=== PATIENT | female | born 1950 | race Caucasian/White ===

== ENCOUNTER 2021-03-26 10:58 | Emergency (ER) | payer MEDICARE, MEDICAID ==
[~2021-03-26] VITALS: Ht 172.7 cm; Wt 101.4 kg
[~2021-03-26 10:58] MED LIST: CALC-467; CETI-90 PO; CHOL10002 PO; DOCU-28 PO; GABA-530 PO; MULT-620 PO; RED30POW; TIZA4CAP PO; TRAM50TA2 PO; UBID10CA4; VITA-268 PO
[2021-03-26 11:24] VITALS: BP 154/100
== END 2021-03-26 11:53 | disposition home or self-care (01) ==
LOC: ER 10:58
DX: R04.0 Epistaxis (principal); G89.29 Other chronic pain; Z79.899 Other long term (current) drug therapy; Z88.8 Allergy status to other drugs, medicaments and biological substances
CPT/HCPCS: 99283

== ENCOUNTER 2021-04-07 07:03 | Emergency (ER) | payer MEDICARE, MEDICAID ==
[~2021-04-07] VITALS: Ht 172.7 cm; Wt 101.8 kg
--- NOTE | 2021-04-07 10:54 | NUR ---
MD MADE AWARE PAT NOSE BLEED STARTED AGAIN.
[2021-04-07] MEDS: tranexamic acid 100mg/ml inj. TP ONE (13:49)
[2021-04-07 13:53] LABS: BASOPHILS # (AUTO) 0.1 X10'3 (0-0.2); BASOPHILS % (AUTO) 0.7 % (0-1); EOSINOPHILS # (AUTO) 0.1 X10'3 (0-0.9); EOSINOPHILS % (AUTO) 0.8 % (0-6); HEMATOCRIT 40.2 % (35.0-45.0); HEMOGLOBIN 13.5 g/dl (12.0-16.0); LYMPHOCYTES # (AUTO) 1.5 X10'3 (1.1-4.8); LYMPHOCYTES % (AUTO) 18.3 % (21-51); MEAN CORPUSCULAR HEMOGLOBIN 28.6 PG (27.0-31.0); MEAN CORPUSCULAR HGB CONC 33.5 g/dL (33.0-36.5); MEAN CORPUSCULAR VOLUME 85.4 FL (78-98); MEAN PLATELET VOLUME 8.1 FL (7.4-10.4); MONOCYTES # (AUTO) 0.7 X10'3 (0-0.9); MONOCYTES % (AUTO) 8.5 % (2-12); NEUTROPHILS # (AUTO) 5.9 X10'3 (1.8-7.7); NEUTROPHILS % (AUTO) 71.7 % (42-75); PLATELET COUNT 370 X10'3 (140-440); RED BLOOD COUNT 4.71 X10'6 (4.20-5.60); RED CELL DISTRIBUTION WIDTH 13.9 % (11.5-14.5); WHITE BLOOD COUNT 8.2 X10'3 (4.5-11.0)
[2021-04-07 13:54] LABS: ALANINE AMINOTRANSFERASE 38 U/L (12-78); ALBUMIN 3.9 G/DL (3.4-5.0); ALBUMIN/GLOBULIN RATIO 1.1 (1.1-1.5); ALKALINE PHOSPHATASE 86 IU/L (46-116); ANION GAP 11 (8-16); ASPARTATE AMINO TRANSFERASE 20 U/L (10-37); BILIRUBIN,TOTAL 0.4 MG/DL (0.1-1.0); BLOOD UREA NITROGEN 19 MG/DL (7-18); BUN/CREATININE RATIO 22.6 (6.6-38.0); CALCIUM 8.7 MG/DL (8.5-10.1); CHLORIDE 106 MMOL/L (99-107); CREATININE 0.84 MG/DL (0.40-0.90); GLUCOSE 109 MG/DL (70-104); POTASSIUM 3.8 MMOL/L (3.5-5.1); SODIUM 144 MMOL/L (135-145); TOTAL PROTEIN 7.5 G/DL (6.4-8.2); eGFR 67 ML/MIN
[2021-04-07] MEDS: LIDOcaine Viscous 15ml cup MM ONE (14:17)
[2021-04-07] MEDS ORDERED: SULF1TAB49 PO (14:17)
[2021-04-07 15:12] VITALS: BP 148/92
== END 2021-04-07 15:15 | disposition home or self-care (01) ==
LOC: ER 07:06
DX: R04.0 Epistaxis (principal); G89.29 Other chronic pain; M54.9 Dorsalgia, unspecified; Z88.6 Allergy status to analgesic agent; Z88.5 Allergy status to narcotic agent; Z79.899 Other long term (current) drug therapy
CPT/HCPCS: 36415; 80053; 85025; 85610; 99283

== ENCOUNTER 2021-04-09 08:52 | Emergency (ER) | payer MEDICARE, MEDICAID ==
[~2021-04-09] VITALS: Ht 172.7 cm; Wt 100.0 kg
[~2021-04-09 08:52] MED LIST changes: +LIDOcaine 1% W/epiNEPHrine 1:100,000 20ml vial ONE; +SULF1TAB49 PO
[2021-04-09 09:12] VITALS: BP 153/76
[2021-04-09 09:44] LABS: BASOPHILS % (AUTO) 0.6 % (0-1); EOSINOPHILS # (AUTO) 0.1 X10'3 (0-0.9); EOSINOPHILS % (AUTO) 2.3 % (0-6); HEMATOCRIT 37.4 % (35.0-45.0); HEMOGLOBIN 12.3 g/dl (12.0-16.0); LYMPHOCYTES # (AUTO) 1.3 X10'3 (1.1-4.8); LYMPHOCYTES % (AUTO) 20.2 % (21-51); MEAN CORPUSCULAR HEMOGLOBIN 28.2 PG (27.0-31.0); MEAN CORPUSCULAR VOLUME 85.6 FL (78-98); MEAN PLATELET VOLUME 7.9 FL (7.4-10.4); MONOCYTES # (AUTO) 0.6 X10'3 (0-0.9); MONOCYTES % (AUTO) 9.5 % (2-12); NEUTROPHILS # (AUTO) 4.3 X10'3 (1.8-7.7); NEUTROPHILS % (AUTO) 67.4 % (42-75); PLATELET COUNT 372 X10'3 (140-440); RED BLOOD COUNT 4.37 X10'6 (4.20-5.60); RED CELL DISTRIBUTION WIDTH 13.4 % (11.5-14.5); WHITE BLOOD COUNT 6.4 X10'3 (4.5-11.0)
[2021-04-09 10:04] LABS: ALANINE AMINOTRANSFERASE 43 U/L (12-78); ALBUMIN/GLOBULIN RATIO 1.1 (1.1-1.5); ALKALINE PHOSPHATASE 89 IU/L (46-116); ANION GAP 11 (8-16); ASPARTATE AMINO TRANSFERASE 23 U/L (10-37); BILIRUBIN,TOTAL 0.3 MG/DL (0.1-1.0); BLOOD UREA NITROGEN 14 MG/DL (7-18); BUN/CREATININE RATIO 15.2 (6.6-38.0); CALCIUM 8.5 MG/DL (8.5-10.1); CHLORIDE 107 MMOL/L (99-107); CREATININE 0.92 MG/DL (0.40-0.90); GLUCOSE 104 MG/DL (70-104); SODIUM 144 MMOL/L (135-145); TOTAL CARBON DIOXIDE 25.6 MMOL/L (24-32); TOTAL PROTEIN 7.5 G/DL (6.4-8.2); eGFR 61 ML/MIN
== END 2021-04-09 12:15 | disposition home or self-care (01) ==
LOC: ER 08:52
DX: R04.0 Epistaxis (principal); G89.29 Other chronic pain; Z88.8 Allergy status to other drugs, medicaments and biological substances; Z79.899 Other long term (current) drug therapy
CPT/HCPCS: 30901; 36415; 80053; 85025; 85610; 86885; 86900; 86901; 99284

== ENCOUNTER 2022-07-02 12:12 | Emergency (ER) | payer MEDICARE, MEDICAID ==
[~2022-07-02] VITALS: Ht 172.7 cm; Wt 100.0 kg
[~2022-07-02 12:12] MED LIST changes: -LIDOcaine 1% W/epiNEPHrine 1:100,000 20ml vial ONE; -SULF1TAB49 PO
[2022-07-02 12:46] LABS: BASOPHILS % (AUTO) 0.1 % (0-1); EOSINOPHILS % (AUTO) 0 % (0-6); HEMATOCRIT 44.4 % (35.0-45.0); HEMOGLOBIN 14.7 g/dl (12.0-16.0); LYMPHOCYTES # (AUTO) 0.7 X10'3 (1.1-4.8); LYMPHOCYTES % (AUTO) 3.5 % (21-51); MEAN CORPUSCULAR HEMOGLOBIN 28.3 PG (27.0-31.0); MEAN CORPUSCULAR HGB CONC 33.2 g/dL (33.0-36.5); MEAN CORPUSCULAR VOLUME 85.1 FL (78-98); MEAN PLATELET VOLUME 8.3 FL (7.4-10.4); MONOCYTES # (AUTO) 1.1 X10'3 (0-0.9); MONOCYTES % (AUTO) 5.4 % (2-12); NEUTROPHILS # (AUTO) 17.8 X10'3 (1.8-7.7); PLATELET COUNT 359 X10'3 (140-440); RED BLOOD COUNT 5.21 X10'6 (4.20-5.60); RED CELL DISTRIBUTION WIDTH 13.5 % (11.5-14.5); WHITE BLOOD COUNT 19.6 X10'3 (4.5-11.0)
[2022-07-02 13:04] LABS: ALANINE AMINOTRANSFERASE 35 U/L (12-78); ALBUMIN 4.2 G/DL (3.4-5.0); ALKALINE PHOSPHATASE 84 IU/L (46-116); ANION GAP 11 (8-16); ASPARTATE AMINO TRANSFERASE 20 U/L (10-37); BILIRUBIN,TOTAL 0.4 MG/DL (0.1-1.0); BLOOD UREA NITROGEN 14 MG/DL (7-18); BUN/CREATININE RATIO 20.6 (6.6-38.0); CALCIUM 8.9 MG/DL (8.5-10.1); CHLORIDE 101 MMOL/L (99-107); CREATININE 0.68 MG/DL (0.40-0.90); GLUCOSE 147 MG/DL (70-104); LIPASE 191 U/L (73-393); POTASSIUM 3.5 MMOL/L (3.5-5.1); SODIUM 137 MMOL/L (135-145); TOTAL PROTEIN 8.3 G/DL (6.4-8.2); eGFR 86 ML/MIN
[2022-07-02] MEDS ORDERED: normal saline 1000ML IV soln IVB ONE (13:15)
[2022-07-02] MEDS ORDERED: ondansetron/PF 4mg/2ml inj IV ONE (13:15)
[2022-07-02] MEDS ORDERED: potassium CL 10mEq/100ml bag 100 ML IV ONE (13:15)
[2022-07-02] MEDS ORDERED: morphine 4 MG/ML inj SYRINge IV ONE (13:55)
[2022-07-02] MEDS ORDERED: PANT-47 PO (14:49)
[2022-07-02] MEDS ORDERED: METO-292 PO (14:49)
[2022-07-02 15:50] VITALS: BP 138/86
== END 2022-07-02 15:53 | disposition home or self-care (01) ==
LOC: ER 12:12
DX: K29.00 Acute gastritis without bleeding (principal); G89.29 Other chronic pain; M54.9 Dorsalgia, unspecified; Z88.6 Allergy status to analgesic agent; Z88.5 Allergy status to narcotic agent; Z79.899 Other long term (current) drug therapy
CPT/HCPCS: 36415; 71045; 74176; 80053; 83690; 85025; 93005; 96361; 96365; 96375; 99285; J2270; J2405; J3480; J7030

== ENCOUNTER 2025-05-03 08:56 | Day surgery (SDC) | payer MEDICARE, MEDICAID ==
[2025-05-02 11:38] LABS: MEAN PLATELET VOLUME 8.0 FL (7.4-10.4); RED CELL DISTRIBUTION WIDTH 13.6 % (11.5-14.5)
[2025-05-02 11:46] LABS: CREATININE 0.87 MG/DL (0.40-0.90); TOTAL CARBON DIOXIDE 27.4 MMOL/L (24-32); eGFR 64 ML/MIN
[2025-05-02 11:49] LABS: APTT 30 SECONDS (22-32); INR 1.1 INR
[~2025-05-03] VITALS: Ht 172.7 cm; Wt 92.8 kg
[2025-05-03] VITALS (10 sets, daily range): BP systolic 118–133; BP diastolic 66–83; PULSE 61–76; RESP 10–20; TEMP 97.9; O2SAT 93–95
[~2025-05-03 08:56] MED LIST changes: +METO-292 PO; +PANT-47 PO
--- NOTE | 2025-05-03 09:26 | ELECTROCARDIOGRAPH REPORT ---
[facility] Test Date: 2025-05-03 Test Time: 09:23:33 Pat Name: ROSY HERNANDEZ Department: [facility] Patient ID: [facility]-[id number] Room: Gender: F Cassandra Consultant: JORDAN : 1950 Requested By: ABDULLAHI BATEMAN Order Number: [id number] Reading MD: Dr. Armando Peacock Measurements Intervals [place] Rate: 70 P: 49 WV: 213 QRS: -49 QRSD: 98 T: 30 QT: 406 QTc: 439 Interpretive Statements Sinus rhythm Multiple premature complexes, vent & supraven Borderline prolonged [place] interval Left anterior fascicular block Abnormal R-wave progression, late transition Electronically Signed On 05-04-2025 6:54:[address] Armando Peacock Please click the below link to view image of tracing.
[2025-05-03] MEDS ORDERED: MAGN200T5 PO (10:10)
[2025-05-03] MEDS ORDERED: OMEG-157 PO (10:10)
[2025-05-03] MEDS ORDERED: ALBU18HF2 (10:10)
[2025-05-03] MEDS ORDERED: ASPI-611 PO (10:10)
[2025-05-03] MEDS ORDERED: midazolam 1 mg/ML 2ml injection ONE (10:19)
[2025-05-03] MEDS ORDERED: LIDOcaine 1% (10mg/ml) 2ml vial ONE (10:19)
[2025-05-03] MEDS ORDERED: verapamil 2.5 mg/ml inj IV ONE (10:19)
[2025-05-03] MEDS ORDERED: iohexol 350 MG/ML 50ML vial IV ONE (10:20)
[2025-05-03] MEDS ORDERED: nitroGLYCERIN 500mcg/5mL D5W 5 ML IV ONE (10:20)
[2025-05-03] MEDS ORDERED: heparin 1,000unit/ml 10ml vial 10 ML ONE (10:20)
[2025-05-03] MEDS ORDERED: fentaNYL/PF 50MCG/1 ML 2ML syringe ONE (10:20)
--- NOTE | 2025-05-03 14:18 | CARDIOLOGY REPORT ---
DATE OF SERVICE: 05/03/2025 DICTATING PHYSICIAN: STEPHEN Coleman MD CARDIAC CATHETERIZATION PRIMARY PHYSICIAN: at [facility]. HOE WORKER: STEPHEN Coleman MD. GENDER: Female. AGE: 74 years. HEIGHT: 172 cm. WEIGHT: 92.8 kg. BODY SURFACE AREA: 2.07 m2. INDICATION: The patient is a 74-year-old postmenopausal female with hypertension, hyperlipidemia, obesity and obstructive sleep apnea, nonobstructive CAD by cardiac catheterization in 2014 who has had exertional fatigue and shortness of breath. She has a strong family history of CAD as well. Her myocardial perfusion scan showed apical reversible defect. After discussing risks, benefits, alternative options, the patient prefers to proceed with definitive coronary angiography. Risks, benefits, and alternative options discussed and informed consent was obtained. The patient also has sleep apnea, on CPAP. She has other comorbidities of DJD, spondylosis, chronic pain, gastritis. PROCEDURE TECHNIQUE: The patient underwent left heart catheterization from right radial approach, a 6-Micronesian right radial sheath. Postprocedure access site hemostasis secured with right radial band. The patient tolerated the procedure well. COMPLICATIONS: None. PROCEDURES: * Ultrasound-guided right radial artery visualization access. * Left heart catheterization. * LVG. * Coronary cineangiography. * Conscious sedation time of 30 minutes FINDINGS: LV G: Overall left ventricular systolic function is about 65%. HEMODYNAMICS: Aortic systolic 116, diastolic 73, mean 66 mmHg, LVEDP of 7 mmHg. No significant gradient across the aortic valve. The patient's brachiocephalic was tortuous; however, we were able to access ascending aorta and engage and do the coronary cineangiography from a right radial approach. Left main coronary artery engaged with JL4 catheter, large caliber with minimal luminal irregularities. LAD is a medium caliber vessel arising at the bifurcation of left main coronary artery, courses through the anterior interventricular groove and ends by wrapping around the apex. LAD has mild luminal irregularities. Diagonal ostium has about 70% to 80% narrowing. Circumflex artery medium caliber co-dominant vessel arising at the bifurcation of the left main coronary artery, courses through the left AV groove with mild luminal irregularities. OM1 is 3 mm caliber with mild luminal irregularities. OM2 is small, OM3 is 3.3 mm with mild luminal irregularities. OM4 is 2 mm with mild luminal irregularities. Right coronary artery is a medium caliber codominant vessel, arising at the right aortic sinus, courses through the right AV groove and ends at the posterior crux by dividing into PDA and posterolateral branches.. RCA and its branches have mild luminal irregularities. IMPRESSION: A 74-year-old female with a left ventricular ejection fraction of 65% LVEDP of 7 mmHg with no significant gradient across the aortic valve. Left main normal. LAD at the origin of diagonal shows 20% narrowing diagonal, ostium has 70% to 80% narrowing. Circumflex and RCA with minimal luminal irregularities. RECOMMENDATIONS: Continue aggressive coronary risk factor modification, cholesterol-lowering therapy, and consider Risks, benefits, and alternative options were discussed with the patient and her family. STEPHEN Coleman MD TID: [id number] RECEIPT: [id number] MELLO/ cc: [facility] MTDEfren
== END 2025-05-03 16:20 | disposition home or self-care (01) ==
LOC: SSTAY O 08:56
PROVIDERS: ATTEND Internal Medicine Cardiovascular Disease
DX: R94.39 Abnormal result of other cardiovascular function study (principal); I25.10 Atherosclerotic heart disease of native coronary artery without angina pectoris; I49.3 Ventricular premature depolarization; I44.4 Left anterior fascicular block; R94.31 Abnormal electrocardiogram [ECG] [EKG]; I10 Essential (primary) hypertension; E78.5 Hyperlipidemia, unspecified; Z79.82 Long term (current) use of aspirin; Z79.899 Other long term (current) drug therapy; G47.39 Other sleep apnea; Z90.49 Acquired absence of other specified parts of digestive tract; Z90.89 Acquired absence of other organs; Z98.51 Tubal ligation status; Z98.890 Other specified postprocedural states; Z82.5 Family history of asthma and other chronic lower respiratory diseases; Z83.3 Family history of diabetes mellitus; Z82.49 Family history of ischemic heart disease and other diseases of the circulatory system
CPT/HCPCS: 36415; 80048; 85025; 85610; 85730; 93005; 93458; 99152; 99153; A6258; A6402; C1725; C1751; C1894; J1644; J2003; J2250; J3010; J3490; J7030; Q9967; Z7610; 76937